=== PATIENT | male | born 1980 | race Caucasian/White ===

== ENCOUNTER 2019-11-01 13:06 | Inpatient (IN) | payer MEDICAID ==
[~2019-11-01] VITALS: Ht 165.1 cm; Wt 68.2 kg
[2019-11-01] MEDS ORDERED: LORazepam 2 MG TABLET PO ONE (16:45)
[2019-11-01] MEDS ORDERED: OLANZapine 5 MG TABLET PO ONE (16:45)
[2019-11-01 17:07] LABS: BASOPHILS % (AUTO) 0.8 % (0.0-2.0); EOSINOPHILS % (AUTO) 1.4 % (1.0-6.0); HEMATOCRIT 52.7 % (41-53); HEMOGLOBIN 17.5 g/dL (13.5-17.5); LYMPHOCYTES # (AUTO) 2.6 K/uL (1.0-4.8); LYMPHOCYTES % (AUTO) 25.7 % (22.0-44.0); MEAN CORPUSCULAR HEMOGLOBIN 30.1 pg (26.0-34.0); MEAN CORPUSCULAR HGB CONC 33.2 G/dL (31.0-37.0); MEAN CORPUSCULAR VOLUME 91 fL (80-100); MONOCYTES # (AUTO) 0.7 K/uL (0.1-1.0); MONOCYTES % (AUTO) 7.4 % (2.0-9.0); NEUTROPHILS # (AUTO) 6.5 K/uL (1.8-7.7); NEUTROPHILS % (AUTO) 64.7 % (40.0-70.0); PLATELET COUNT (AUTO) 275 K/uL (150-450); RED BLOOD CELL COUNT(AUTO) 5.81 MIL/uL (4.50-5.90); RED CELL DISTRIBUTION WIDTH 13.8 % (11.5-14.5)
[2019-11-01 17:16] LABS: ANION GAP 8 mmol/L (8-16); CALCIUM, TOTAL 9.4 mg/dL (8.8-10.5); CARBON DIOXIDE 26 mmol/L (22-29); CHLORIDE 102 mmol/L (98-107); CREATININE 0.87 mg/dL (0.60-1.30); GLOMERULAR FILTR. RATE CALC > 60 mL/min (>60); GLUCOSE,RANDOM 99 mg/dL (70-110); POTASSIUM 4.4 mmol/L (3.5-5.1); SODIUM SERUM 136 mmol/L (136-145); UREA NITROGEN, BLOOD 17 mg/dL (7-18)
[2019-11-01 17:23] LABS: ALANINE AMINOTRANSFERASE 60 U/L (12-78); ALBUMIN 4.5 g/dL (3.4-5.0); ALKALINE PHOSPHATASE 77 U/L (46-116); ASPARTATE AMINOTRANSFERASE 47 U/L (15-37); BILIRUBIN,TOTAL 0.6 mg/dL (0.1-1.0); TOTAL PROTEIN, SERUM 8.5 g/dL (6.4-8.2)
[2019-11-01] MEDS ORDERED: ZOLPIDEM TARTRATE 10 MG TABLET PO PRN (17:30)
[2019-11-01] MEDS ORDERED: HALOPERIDOL 5 MG TABLET PO PRN (17:30)
[2019-11-01 17:53] LABS: AMPHET/METH SCREEN,URINE POSITIVE (NEGATIVE); BARBITURATE SCREEN, URINE NEGATIVE (NEGATIVE); BENZODIAZEPINES SCREEN,URINE POSITIVE (NEGATIVE); CANNABINOID SCREEN,URINE POSITIVE (NEGATIVE); COCAINE SCREEN,URINE NEGATIVE (NEGATIVE); METHADONE SCREEN, URINE POSITIVE (NEGATIVE); OPIATE SCREEN,URINE NEGATIVE (NEGATIVE); PHENCYCLIDINE SCREEN,URINE NEGATIVE (NEGATIVE)
[2019-11-01] MEDS: OLANZapine 10 MG TABLET PO SCH (20:58)
[2019-11-01] MEDS ORDERED: PNEUMOCOCCAL VACCINE POLYVALENT 0.5 ML VIAL [PPSV23] IM ONE (22:30)
[2019-11-01] MEDS ORDERED: INFLUENZA VIRUS VACCINE QVS 2019-20 (3YR+)/PF 60 MCG/0.5 ML SYRINGE IM ONE (22:30)
[2019-11-02 06:58] VITALS: BP 115/72
[2019-11-02 08:08] VITALS: BP 109/63
[2019-11-02] MEDS: OLANZapine 10 MG TABLET PO SCH ×2 (09:00→16:23)
[2019-11-02] MEDS ORDERED: BACITRACIN 28.4 GM OINTMENT TP PRN (14:00)
[2019-11-02] MEDS ORDERED: MAG HYDROX/AL HYDROX/SIMETH ES 30 ML SUSPENSION UDCUP PO PRN (14:00)
[2019-11-02] MEDS ORDERED: ACETAMINOPHEN 325 MG TABLET PO PRN (14:00)
[2019-11-02] MEDS ORDERED: CloNIDine HCL 0.1 MG TABLET PO PRN (14:00)
[2019-11-02] MEDS ORDERED: ALBUTEROL SULFATE HFA 90 MCG/PUFF 8 GM INHALER IH PRN (14:00)
[2019-11-02] MEDS ORDERED: BENZOCAINE/MENTHOL LOZENGE MM PRN (14:00)
[2019-11-02] MEDS ORDERED: MAGNESIUM HYDROXIDE SUSPENSION 30 ML UDCUP PO PRN (14:00)
[2019-11-02] MEDS ORDERED: LOPERAMIDE HCL 2 MG CAPSULE PO PRN (14:00)
[2019-11-02] MEDS ORDERED: PETROLATUM,WHITE 28 GM JELLY TP PRN (14:00)
[2019-11-02] MEDS ORDERED: IBUPROFEN 600 MG TABLET PO PRN (14:00)
[2019-11-02] MEDS ORDERED: ONDANSETRON HCL 4 MG TABLET PO PRN (14:00)
[2019-11-02 16:05] VITALS: BP 112/63
[2019-11-02] MEDS: LORazepam 2 MG TABLET PO PRN (16:37)
[2019-11-03 05:08] VITALS: BP 124/82
[2019-11-03] MEDS: DOCUSATE SODIUM 100 MG CAPSULE PO SCH ×2 (09:00→09:15)
[2019-11-03] MEDS: OMEPRAZOLE 20 MG CAPSULE PO SCH ×2 (09:00→09:14)
[2019-11-03] MEDS: OLANZapine 10 MG TABLET PO SCH ×3 (09:00→16:03)
[2019-11-03] MEDS: LORazepam 2 MG TABLET PO PRN ×2 (09:38→17:21)
[2019-11-03 16:00] VITALS: BP 109/57
[2019-11-03] MEDS ORDERED: NICOTINE POLACRILEX 2 MG LOZENGE PO PRN (17:45)
[2019-11-03] MEDS: NICOTINE 21 MG/24 HOUR PATCH TD SCH (19:29)
[2019-11-04] MEDS: LORazepam 2 MG TABLET PO PRN (00:46)
[2019-11-04 05:28] VITALS: BP 135/84
[2019-11-04 08:00] VITALS: BP 105/62
[2019-11-04] MEDS: OLANZapine 10 MG TABLET PO SCH (09:00)
[2019-11-04] MEDS: NICOTINE 21 MG/24 HOUR PATCH TD SCH (09:38)
== END 2019-11-04 12:10 | disposition home or self-care (01) | DRG 750 ==
LOC: EMS 13:09 → B3A 22:35
PROVIDERS: ADMIT Psychiatry & Neurology Psychiatry; ATTEND Psychiatry & Neurology Psychiatry
DX: F20.9 Schizophrenia, unspecified (principal); Z59.0 Homelessness; F15.10 Other stimulant abuse, uncomplicated; Z28.21 Immunization not carried out because of patient refusal; F17.210 Nicotine dependence, cigarettes, uncomplicated; I10 Essential (primary) hypertension; Z91.14 Patient's other noncompliance with medication regimen; F41.9 Anxiety disorder, unspecified; F32.9 Major depressive disorder, single episode, unspecified; K59.00 Constipation, unspecified; G47.00 Insomnia, unspecified
CPT/HCPCS: G0480

== ENCOUNTER 2020-09-16 08:43 | Emergency (ER) | payer MEDICAID, OTHER ==
[~2020-09-16] VITALS: Ht 170.2 cm; Wt 61.4 kg
[2020-09-16 12:01] VITALS: BP 171/96
== END 2020-09-16 12:08 | disposition home or self-care (01) ==
LOC: EMS 08:43
DX: F69 Unspecified disorder of adult personality and behavior (principal); F31.9 Bipolar disorder, unspecified; F20.9 Schizophrenia, unspecified; I10 Essential (primary) hypertension; F17.210 Nicotine dependence, cigarettes, uncomplicated; F15.90 Other stimulant use, unspecified, uncomplicated
CPT/HCPCS: Z7502

== ENCOUNTER 2021-10-26 03:54 | Emergency (ER) | payer OTHER ==
[~2021-10-26] VITALS: Ht 170.2 cm; Wt 59.1 kg
[2021-10-26] MEDS ORDERED: 0.9% SODIUM CHLORIDE 10 ML SYRINGE IVP PRN (04:15)
[2021-10-26] MEDS ORDERED: CLINDAMYCIN 900 MG/D5% WATER 50 ML IV ONE (04:15)
[2021-10-26] MEDS ORDERED: KETOROLAC TROMETHAMINE 30 MG/ML VIAL IM ONE (04:15)
[2021-10-26 04:50] LABS: BASOPHILS % (AUTO) 1.1 % (0.0-2.0); EOSINOPHILS % (AUTO) 3.2 % (1.0-6.0); HEMATOCRIT 37.8 % (41-53); HEMOGLOBIN 12.6 g/dL (13.5-17.5); LYMPHOCYTES # (AUTO) 2.3 K/uL (1.0-4.8); LYMPHOCYTES % (AUTO) 24.1 % (22.0-44.0); MEAN CORPUSCULAR HEMOGLOBIN 28.4 pg (26.0-34.0); MEAN CORPUSCULAR HGB CONC 33.4 G/dL (31.0-37.0); MEAN CORPUSCULAR VOLUME 85 fL (80-100); MONOCYTES # (AUTO) 0.9 K/uL (0.1-1.0); MONOCYTES % (AUTO) 9.1 % (2.0-9.0); NEUTROPHILS # (AUTO) 6.1 K/uL (1.8-7.7); NEUTROPHILS % (AUTO) 62.5 % (40.0-70.0); PLATELET COUNT (AUTO) 276 K/uL (150-450); RED BLOOD CELL COUNT(AUTO) 4.44 MIL/uL (4.50-5.90); RED CELL DISTRIBUTION WIDTH 13.8 % (11.5-14.5)
[2021-10-26 05:07] LABS: LACTIC ACID 0.4 mmol/L (0.4-2.0)
[2021-10-26 05:11] LABS: ANION GAP 9 mmol/L (8-16); CALCIUM, TOTAL 8.7 mg/dL (8.8-10.5); CARBON DIOXIDE 27 mmol/L (22-29); CHLORIDE 105 mmol/L (98-107); CREATININE 1.16 mg/dL (0.60-1.30); GLOMERULAR FILTR. RATE CALC > 60 mL/min (>60); GLUCOSE,RANDOM 113 mg/dL (70-110); POTASSIUM 3.9 mmol/L (3.5-5.1); SODIUM SERUM 141 mmol/L (136-145); UREA NITROGEN, BLOOD 23 mg/dL (7-18)
[2021-10-26 05:14] LABS: ALANINE AMINOTRANSFERASE 44 U/L (12-78); ALBUMIN 3.1 g/dL (3.4-5.0); ALKALINE PHOSPHATASE 98 U/L (46-116); ASPARTATE AMINOTRANSFERASE 37 U/L (15-37); BILIRUBIN,TOTAL 0.2 mg/dL (0.1-1.0); TOTAL PROTEIN, SERUM 7.3 g/dL (6.4-8.2)
[2021-10-26] MEDS ORDERED: LISINOPRIL 10 MG TABLET PO ONE (05:15)
[2021-10-26] MEDS ORDERED: MUPIROCIN CALCIUM 2% 22 GM OINTMENT TP ONE (05:15)
[2021-10-26] MEDS ORDERED: CLINDAMYCIN HCL 150 MG CAPSULE PO ONE (05:15)
[2021-10-26] MEDS ORDERED: PERTUSS(ACELL),DIPH,TET VAC/PF 0.5 ML SYRINGE IM. ONE (05:15)
[2021-10-26 05:49] VITALS: BP 156/100
== END 2021-10-26 06:05 ==
LOC: EMS 03:56
DX: L98.499 Non-pressure chronic ulcer of skin of other sites with unspecified severity (principal); I10 Essential (primary) hypertension; F20.9 Schizophrenia, unspecified; Z59.00 Homelessness unspecified; F17.210 Nicotine dependence, cigarettes, uncomplicated; F31.9 Bipolar disorder, unspecified; F41.9 Anxiety disorder, unspecified; F15.90 Other stimulant use, unspecified, uncomplicated
CPT/HCPCS: 73090; 80053; 83605; 85025; 85610; 87040; 93005; 96372; 99285; G0480; J1885; J3490